=== PATIENT | female | born 1985 ===

== ENCOUNTER 2018-08-29 05:21 | Inpatient (IN) | payer OTHER ==
--- NOTE | 2018-08-28 12:33 | NUR ---
ADMITTED PT VIA [facility] #[id number].
[~2018-08-29] VITALS: Ht 157.5 cm; Wt 83.0 kg
[2018-08-29] VITALS (11 sets, daily range): BP systolic 105–131; BP diastolic 7–87
[2018-08-29] MEDS ORDERED: Vancomycin 1gm vial IVPB ONE (06:29)
[2018-08-29] MEDS ORDERED: Gelfoam Size TOPIC ONE (06:30)
[2018-08-29] MEDS ORDERED: Bacitracin 50000 Units Vial ONE (06:30)
[2018-08-29] MEDS ORDERED: Bupivacaine w/Epi 0.5% 30ml Vial INJ ONE (06:30)
[2018-08-29] MEDS ORDERED: CIPROFLOXACIN250 MG PO (06:30)
[2018-08-29] MEDS ORDERED: Thrombin 5000 units TOPIC ONE ×2 (06:30→08:29)
[2018-08-29] MEDS ORDERED: fentaNYL 100 mcg/2 mL IV ONE (06:39)
[2018-08-29] MEDS ORDERED: Midazolam 2mg/2ml Inj ONE (06:39)
[2018-08-29] MEDS ORDERED: Succinylcholine 20mg/ml 10ml vial ONE (06:49)
[2018-08-29] MEDS ORDERED: TransDerm Scop 1mg/72HR Patch TDERMAL ONE ×2 (06:49→08:30)
[2018-08-29] MEDS ORDERED: Zemuron 50mg/5ml Inj IV ONE (06:49)
[2018-08-29] MEDS ORDERED: Propofol 1,000mg/ 100ml btl IV ONE (07:00)
--- NOTE | 2018-08-29 07:12 | Pre-Procedure Note/Attestation ---
Pre-Procedure Note/Attestation Complete Prior to Procedure Planned Procedure: not applicable Procedure Narrative: Right sided microdiscectomy hemilaminotomy foraminotomy L5S1 Indications for Procedure Pre-Operative Diagnosis: L5S1 herniation right sided Attestation I attest that I discussed the nature of the procedure; its benefits; risks and complications; and alternatives (and the risks and benefits of such alternatives ), prior to the procedure, with the patient (or the patient's legal inventory representative). I attest that, if there was a reasonable possibility of needing a blood transfusion, the patient (or the patient's legal inventory representative) was given the [facility] standardized written summary, pursuant to the [place] Blood Safety Act ([place] Health and Safety Code # 1645, as amended). I attest that I re-evaluated the patient just prior to the surgery and that there has been no change in the patient's H&P, except as documented below: Young Rodriguez MD Aug 29, 2018 07:12
--- NOTE | 2018-08-29 07:13 | Brief Operative Note ---
Immediate Post Operative Note Operative Note Chief Complaint: Radiculopathy Pre-op Diagnosis: L5S1 herniation right sided Procedure: Right sided microdiscectomy hemilaminotomy foraminotomy L5S1 Post-op Diagnosis: same as pre-op Findings: consistent w/pre-op dx studies Surgeon: [facility] Internship: [facility] Anesthesiologist: ARNEL Anesthesia: general Specimen: none Complications: none Condition: stable Fluids: IVF Estimated Blood Loss: minimal Drains: none Implant(s) used?: No Young Rodriguez MD Aug 29, 2018 07:13
--- NOTE | 2018-08-29 08:03 | Anethesia Preoperative Eval ---
Anesthesia Pre-op PMH/ROS General Date of Evaluation: Aug 29, 2018 Time of Evaluation: 06:50 Anesthesiologist: Vandana ASA Score: ASA 2 Mallampati Score Class I : Soft palate, uvula, fauces, pillars visible Class II: Soft palate, uvula, fauces visible Class III: Soft palate, base of uvula visible Class IV: Only hard plate visible Mallampati Classification: Class II Surgeon: Michael Diagnosis: Lumbar radiculopathy Surgical Procedure: L5-S1 laminotomy Anesthesia History: none Family History: no anesthesia problems Allergies: Coded Allergies: No Known Allergies (Unverified , 08/27/18) Medications: see eMAR Patient NPO?: Yes NPO Date: Aug 28, 2018 NPO Time: 1999 Past Medical History Cardiovascular: Denies: HTN, CAD, MD, valve dz, arrhythmia, other Pulmonary: Denies: asthma, COPD, LUCIO, other Gastrointestinal/Genitourinary: Reports: GERD; Denies: CRI, ESRD, other Neurologic/Psychiatric: Reports: other - chronic pain; Denies: dementia, CVA, depression/anxiety, TIA Endocrine: Denies: DM, hypothyroidism, steroids, other HEENT: Denies: cataract (L), cataract (R), glaucoma, [place] (L), [place] (R), other Hematology/Immune: Denies: anemia, DVT, bleeding disorder, other Musculoskeletal/Integumentary: Denies: OA, RA, DJD, DDD, edema, other Other: obesity PMH Narrative: as above PSxH Narrative: none Anesthesia Pre-op Phys. Exam Physician Exam Last Vital Signs Date Time Temp Pulse Resp B/P (MAP) Pulse Ox O2 Delivery O2 Flow Rate FiO2 08/29/18 06:10 Room Air 08/29/18 06:07 98.6 93 20 131/87 (102) 99 Constitutional: NAD Neurologic: CN 2-12 intact Cardiovascular: RRR, no M/R/G Respiratory: CTA Gastrointestinal: S/NT/ND Airway Exam Mallampati Score: Class II MO: full Neck: flexible ROM: full Teeth: missing Dentures: no upper, no lower Anesthesia Pre-op A/P Labs see chart Urine Test Test 08/29/18 05:35 Urine HCG, Qualitative Negative (NEGATIVE) Studies Pre-op Studies: EKG - NSR Risk Assessment & Plan Assessment: ASA 2 Plan: GA with ETT prone position neuromonitoring Status Change Before Surgery: No Pre-Antibiotics Drug: Ancef 2gr. Given Within 1 Hr of Incision: Yes Time Given: 08:48 Xavier Ross MD Aug 29, 2018 08:03
[2018-08-29] MEDS ORDERED: LR 1000ml 1,000 ML IVLG SCH (08:04)
[2018-08-29] MEDS ORDERED: Sodium Chloride 10ml vial INJ ONE (08:08)
[2018-08-29] MEDS ORDERED: Ketorolac 30mg Inj ONE (08:08)
[2018-08-29] MEDS ORDERED: Glycopyrrolate 0.2mg/ml 1ml Vial ONE (08:08)
[2018-08-29] MEDS ORDERED: Morphine Sulfate 10mg/ml Inj ONE (08:08)
[2018-08-29] MEDS ORDERED: Meperidine 50mg/ml Inj(FOR RIGORS ONLY) IV PRN (08:15)
[2018-08-29] MEDS ORDERED: Metoclopramide 10mg/2ml Inj IVP PRN ×2 (08:15→11:00)
[2018-08-29] MEDS ORDERED: DiphenhydrAMINE 50mg/ml Inj IVP PRN (08:15)
[2018-08-29] MEDS ORDERED: Ketorolac 30mg Inj IV PRN (08:15)
[2018-08-29] MEDS ORDERED: Hydromorphone 0.5mg/0.5ml inj IVP PRN (08:15)
[2018-08-29] MEDS ORDERED: NS Irrig 1000ml IRRIG ONE (08:28)
[2018-08-29] MEDS ORDERED: Acetaminophen (Non formulary) 100 ML IV ONE (08:30)
--- NOTE | 2018-08-29 08:58 | Immediate Post-Op Evaluation ---
Immediate Post-Op Evalulation Immediate Post-Op Evalulation Procedure: L5-S1 laminotomy with decompression Date of Evaluation: Aug 29, 2018 Time of Evaluation: 08:57 IV Fluids: 800 Blood Products: none Estimated Blood Loss: <50 Urinary Output: 200 Blood Pressure Systolic: 116 Blood Pressure Diastolic: 64 Pulse Rate: 98 Respiratory Rate: 22 O2 Sat by Pulse Oximetry: 99 Temperature (Fahrenheit): 98.2 Pain Score (1-10): 1 Nausea: No Vomiting: No Complications none Patient Status: reacts, patent, extubated, none Hydration Status: adequate Xavier Ross MD Aug 29, 2018 08:58
--- NOTE | 2018-08-29 10:00 | NUR ---
NURSE NOTES: REC'D FROM PACU SP RIGHT HEMILAMINOTOMY,MICRODISCECTOMY L5-S1.AWAKE/ALERT. V/S TAKEN NO C/O PAIN. DERMABAND DRESSING DRY AND INTACT . ICE PACK ON. IN NO APPARENT DISTRESS.
[2018-08-29] MEDS ORDERED: Morphine Sulfate 4mg/ml Inj (IV USE ONLY) IV PRN ×2 (10:30→11:00)
[2018-08-29] MEDS ORDERED: Morphine Sulfate 2mg/ml Inj(IV/IM USE ONLY) IV PRN (10:30)
[2018-08-29] MEDS ORDERED: HYDROcodone/Acetamin 5/325 tab ORAL PRN (11:00)
[2018-08-29] MEDS ORDERED: Naloxone 0.4mg/ml Inj IVP PRN (11:00)
[2018-08-29] MEDS ORDERED: Milk of Magnesia 30ml Ud ORAL PRN (11:00)
[2018-08-29] MEDS ORDERED: HYDROcodone/Acetamin 7.5/325 tab ORAL PRN ×2 (11:00)
[2018-08-29] MEDS ORDERED: HYDROmorphone 1mg/ml Carpuject IVP PRN (11:00)
--- NOTE | 2018-08-29 11:07 | NUR ---
NURSE NOTES: dr caty hernandez notified of pt admission. left message to return call.
[2018-08-29] MEDS ORDERED: Chloraseptic Spray 20mL Bottle ORAL PRN (11:30)
[2018-08-29] MEDS ORDERED: NS w/KCl 20mEq 1000ml 1,000 ML IV SCH (11:30)
--- NOTE | 2018-08-29 14:25 | NUR ---
PT EVALUATION NOTE Patient seen for initial evaluation, see complete evaluation note for details. Patient presents with generalized weakness and impaired functional mobility following lumbar surgery. Patient requires SBA/CGA for bed mobility and transfers, able to ambulate 125 ft with SBA, no AD. Patient will benefit from skilled inpatient PT intervention to address strength, safety with back precautions and functional mobility. Anticipate discharge home with family assistance as needed once medically cleared by MD. Recommend elevated toilet seat for home use. Addendum: 08/29/18 at 1445 by VARINDER NAVARRO PT Amended: Links added.
[2018-08-29] MEDS ORDERED: NORCO 10-325 T1 EACH ORAL (14:32)
[2018-08-29] MEDS ORDERED: ceFAZolin sod 1 GM in D5W 55 ML IV SCH (15:30)
--- NOTE | 2018-08-29 15:41 | Diagnostic Imaging Report ---
INDICATION: Pain, intraoperative TECHNIQUE: Intraoperative imaging Fluoroscopy time: 6.3 seconds Total dose: 0.83306 mGym2 Total number of images: 2 COMPARISON: None FINDINGS: Intraoperative images demonstrate surgical tool projected at the level of what is presumably the L5-S1 disc. IMPRESSION: Intraoperative imaging, as described
--- NOTE | 2018-08-29 16:23 | NUR ---
CASE MANAGEMENT: INITIAL REVIEW 32 YO F PRESENTED TO ED FOR SURGERY SI:HERNIATED NUCLEUS PULPOSUS. PAIN RADICULOPATHY. T 98.6 HR 93 RR 20 B/P 131/87 SATS 99% ON RA HCG (-) IS:OR MEDS PATIENT ADMITTED TO MED/SURG STATUS 08/29/2018 @ 0713 DCP: PATIENT TO BE DISCHARGED TO HOME ONCE MEDICALLY CLEARED. PLAN OF CARE: Pre-op Diagnosis: L5S1 herniation right sided Procedure: Right sided microdiscectomy hemilaminotomy foraminotomy L5S1 Addendum: 08/30/18 at 1137 by Latasha Jauregui INTERQUAL MET
--- NOTE | 2018-08-29 16:40 | NUR ---
NURSE NOTES: DISCHARGED HOME PER WHEELCHAIR ACCPD BY IN STABLE CONDITION. DC INSTRUCTION AND RX GIVEN.
[2018-08-29] MEDS ORDERED: Docusate 100mg cap ORAL SCH (18:00)
--- NOTE | 2018-08-29 21:00 | Operative Note - Dictated ---
DATE OF OPERATION: 08/29/2018 SURGEON: Young Rodriguez M.D., Orthopaedic Spine Surgeon. DIETETIC TECHNICIAN SURGEON: Pro Anders M.D. ANESTHESIOLOGIST: Xavier Ross M.D. ANESTHESIA: General endotracheal anesthesia. PREOPERATIVE DIAGNOSES: 1. Intractable back pain. 2. Intractable leg pain. 3. Worsening radiculopathy. 4. Weakness. 5. Herniated nucleus pulposus, L5-S1 herniation. 6. Neural foraminal stenosis, L5-S1. POSTOPERATIVE DIAGNOSES: 1. Intractable back pain. 2. Intractable leg pain. 3. Worsening radiculopathy. 4. Weakness. 5. Herniated nucleus pulposus, L5-S1 herniation. 6. Neural foraminal stenosis, L5-S1. PROCEDURES PERFORMED: 1. Right-sided L5-S1 microdiscectomy. 2. L5-S1 hemilaminotomy, foraminotomy and medial facetectomy. 3. L5-S1 neural foraminotomy through a transpedicular intraforaminal approach. 4. Use of intraoperative microscope. 5. Supervision and interpretation of intraoperative fluoroscopy. 6. Supervision and interpretation of somatosensory-evoked potential and free running EMG monitoring. ESTIMATED BLOOD LOSS: Less than 100 mL. COMPLICATIONS: None. INDICATIONS FOR THE PROCEDURE: The patient presents for intractable back pain and radiculopathy. The patient tried and failed a prolonged course of conservative management, including but not limited to chiropractic therapy, physical therapy, nonsteroidal anti-inflammatory drugs, medication, ice packs as well as epidural injection. Despite these therapies, the patient still developed recalcitrant pain and elected for definitive management in the form of right-sided L5-S1 microdiscectomy, L5-S1 hemilaminotomy, foraminotomy and medial facetectomy, and L5-S1 neural foraminotomy through a transpedicular intraforaminal approach. CONSENT: We had a long discussion with the patient regarding definitive surgical treatment options. The patient's MRI demonstrated herniated nucleus pulposus, L5-S1 herniation and neural foraminal stenosis, L5-S1, and as a result, I felt the patient would benefit from the discectomy as well as neural foraminotomy at this level. We had a long discussion with the patient regarding the risks, alternatives, and benefits of surgery. Our description of the risks included a discussion in person as well as a signed consent which detailed all pertinent risks and the procedure itself. Briefly, our discussion included but was not limited to infection, bleeding, pseudarthrosis, spinal cord injury, neurovascular injury, dural tear, CSF leak, neuropathy, paralysis, permanent weakness/drop foot, paresthesias blindness, palsy and weakness. The patient understood there may be a need for revision surgery or additional procedures. Approach related complications including dysphonia, dysphagia, blindness, permanent vocal cord and neural injury, hematoma, swallowing and breathing difficulty. Medical complications including liver, kidney, shock, and cardiopulmonary failure. Anesthesia complications including , swelling. Damage to the musculature, larynx (voice injury or loss),esophagus (throat), trachea, blood vessels and muscles (muscular sprain) and lungs (pneumothorax) during this surgical procedure. Injury to deeper structures may be temporary or permanent. The patient understood these and elected to proceed. A written and verbal consent was given. We discussed the pros and cons of all the alternatives. We discussed the uncertainties associated with the decision. Afterwards I assessed the patients understanding and explored their preferences. All questions were answered and no guarantees were given. Medical clearance was obtained prior to surgery INTRAOPERATIVE FINDINGS: At L5-S1, there was a tear noted in the posterior longitudinal ligament, which was approximately 20 degrees cephalad to caudad. Through this tear, we noted the egress of nuclear pulposus tissue, which was causing encroachment on the exiting and traversing neural elements at L5-S1. This was carefully assessed. The disc was soft and mobile and there was the nuclear tissue connecting into the herniated nuclear pulposus itself. DESCRIPTION OF PROCEDURE: Under the benefit of general endotracheal anesthesia and with the assistance of the entire operative team, the patient was moved from the [facility] onto the operative table in the prone position on a Sadi frame. The head was secured and positioned appropriately. Bilateral arms were secured with Gel pads and foam and all bony prominences were padded. The bilateral lower extremity SCD and MARIA ISABEL hose were placed for DVT prophylaxis. A surgical timeout was called which corroborated our planned procedure. Preoperative Antibiotics were administered within 30 minutes of the incision for prophylaxis. Decadron was given for preoperative steroids. Using lateral radiography, the operative levels were delineated. An incision was marked based on our interpretation of lateral radiography and afterwards the body was prepped and draped in the usual sterile manner. The family was notified that we were ready to commence surgery and were called in the waiting room hourly for updates An incision was based on our lateral fluoroscopic image to center the incision at the L5-S1 interspace. The wound was prepped and draped in the usual sterile fashion. Using a scalpel a midline incision was taken down through the skin and subcutaneous tissues until the overlying hemilamina of L5-S1 were visualized. Next, using meticulous hemostasis, hemilamotomies were dissected and retractors were placed. Using a [place] dental, we confirmed placement at the L5-S1 interspace. We next turned our attention to our decompression. A standard hemilaminotomy foraminotomy medial facetectomy was performed at each level in standard fashion using a Midas-Lalo type AM8 drill bit, straight and angled curettage, and Kerrison 4 rongeurs until the lateral thecal sac margin and traversing nerve root was visualized. All remainders of the ligamentum flavum and lateral bony margins were resected in total with angled curettage and Kerr[place] 4 rongeurs until the lateral thecal sac margin and traversing nerve root was visualized and decompressed. We next turned our attention toward our L5-S1 microdiscectomy on the right side. A [place] 4 was used to gently mobilize the thecal sac medially and this was held retracted with a bayonetted nerve root retractor. It was at this point that we noted a large broad-based disc protrusion with encroachment dorsally on the thecal sac neural foraminal contents. A bayonet and nerve root retractor was then placed carefully to retract the thecal sac and a discectomy was performed using a combination of a long handled 15 blade scalpel, downgoing and straight pituitaries and downgoing curettage. Afterward the disc space was irrigated twice with 20 mL of antibiotic-impregnated saline. All loose and free-floating disc fragments were carefully resected with a narrow pituitary. Having been satisfied with our decompression after our discectomy of all neural elements, we next turned our attention to our neural foraminoplasty/foraminotomy. This was performed through a transpedicular intraforaminal approach using an access probe followed by a neuro check device, which confirmed ventral placement of our nerve root. Once we confirmed we were safe, we next turned our attention towards placement of our size 10 file under direct microscopic visualization and under lateral fluoroscopy. Using pre and post reciprocation imaging, we were able to visualize our direct decompression given the reciprocation allowed for re-creation of the neural foraminal arch at L5-S1. Afterwards, hemostasis was obtained with 60 mL of antibiotic-impregnated saline followed by FloSeal and Gelfoam. After sponge and needle count were found to be correct, we next turned our attention to closure. Closure consisted of 1-0 Vicryl in standard interrupted fashion. Zosyn was placed deep to the fascia and superficial to the fascia for antibiotic prophylaxis. Skin closure was performed with 2-0 Vicryl in interrupted fashion followed by a running Monocryl for the skin. Final dressings consisted of Dermabond for the superficial skin, Telfa and Tegaderm. The patient tolerated the procedure well. The patient was extubated after the conclusion of surgery without incident. We discussed the findings of the surgery with the family upon completion of the case. At this point the patient will be transferred to the spine floor for further observation. Young Rodriguez M.D. DR: DION JOB#: [id number] CC:
--- NOTE | 2018-08-30 08:11 | Discharge Summary ---
Discharge Summary Discharge Summary _ DATE OF ADMISSION: 08/29/2018 DATE OF DISCHARGE: 08/29/2018 DISCHARGED BY: Dr. Young Rodriguez BRIEF HOSPITAL COURSE: Patient is a 32-year-old female, who had intractable back pain and radiculopathy. The patient tried and failed a prolonged course of conservative management, including but not limited to chiropractic therapy, physical therapy , nonsteroidal anti-inflammatory drugs, medications, ice pack as well as epidural injection. Despite those therapies, patient still developed recalcitrant pain and elected for definitive management. She was admitted on and underwent right-sided microdiscectomy, hemilaminotomy, foraminotomy L5-S1. She tolerated procedure well. Surgery was uneventful. Post -operatively, patient was admitted for post-op care. She was placed on SCDs for DVT prophylaxis and was encouraged use of incentive spirometer. Patient was given pain management. She was seen by PT. Diet was advanced. Incision was clean, dry and intact. Patient was ambulating well with good pain control and was tolerating diet. Patient was eventually cleared for discharge home. POSTOPERATIVE DIAGNOSES: 1. Intractable back pain. 2. Intractable leg pain. 3. Worsening radiculopathy. 4. Weakness. 5. Herniated nucleus pulposus, L5-S1 herniation. 6. Neural foraminal stenosis, L5-S1. PROCEDURES PERFORMED: 1. Right-sided L5-S1 microdiscectomy. 2. L5-S1 hemilaminotomy, foraminotomy and medial facetectomy. 3. L5-S1 neural foraminotomy through a transpedicular intraforaminal approach. 4. Use of intraoperative microscope. 5. Supervision and interpretation of intraoperative fluoroscopy. 6. Supervision and interpretation of somatosensory-evoked potential and free running EMG monitoring. (Refer to Operative Report) DISCHARGE DISPOSITION: Patient was discharged home. DISCHARGE MEDICATIONS: Refer to Medication Reconciliation Sheet. DISCHARGE INSTRUCTIONS: Post-op instructions given. Follow-up in a week. I have been assigned to complete a DC summary on this account, I was not involved with the patient's management. Sonia Reardon NP Aug 30, 2018 08:11
--- NOTE | 2018-08-30 12:12 | 48 Hour Post Anesthesia Eval ---
Post Anesthesia Evaluation Procedure: L5-S1 laminotomy with decompression Airway: patent Nausea: No Vomiting: No Hydration Status: adequate Cardiopulmonary Status: at baseline Mental Status/LOC: patient returned to baseline Post-Anesthesia Complications: 0 Follow-up care needed: ready to discharge Ruth Thapa MD Aug 30, 2018 12:12
== END 2018-08-29 16:40 | disposition home or self-care (01) | DRG 520 ==
LOC: SDSOVERFLO 05:21 → 3E 09:58
DX: M51.17 Intervertebral disc disorders with radiculopathy, lumbosacral region (principal); V89.2XXS Person injured in unspecified motor-vehicle accident, traffic, sequela; M48.07 Spinal stenosis, lumbosacral region
CPT/HCPCS: 36415; 72020; 76000; 81025; 86850; 86900; 86901; 87081; 94003; 94150; J2250